=== PATIENT | male | born 1965 | race Hispanic/Latino ===

== ENCOUNTER 2017-11-10 08:14 | Emergency (ER) | payer SELFPAY ==
[2017-11-10] MEDS ORDERED: FAMOTIDINE 20 MG/2 ML VIAL IV ONE (08:50)
[2017-11-10] MEDS ORDERED: DEXAMETHASONE 4 MG/ML VIAL ONE (08:50)
[2017-11-10] MEDS ORDERED: DIPHENHYDRAMINE 50 MG/ML VIAL ONE (08:50)
--- NOTE | 2017-11-10 11:04 | EDPHYS ---
Physician Documentation [facility] Name: Willie Severino Age: 52 yrs Sex: Male : 1965 Arrival Date: 11/10/2017 Time: 08:18 Bed 16 Private MD: ED Physician Graeme Altamirano HPI: 11/10 11:00 This 52 yrs old Male presents to ER via Ambulatory with complaints of Lip pm1 Swelling. 11:00 The patient presents with swelling. The problem is located in the lips. Onset: The pm1 symptoms/episode began/occurred 3 day(s) ago. Duration: The symptoms are continuous. Modifying factors: The symptoms are alleviated by nothing, the symptoms are aggravated by nothing. Associated signs and symptoms: Pertinent negatives: dysphagia, fever, inability to eat, nausea, vomiting, shortness of breath, sore throat, chest pain. Severity of symptoms: in the emergency department the symptoms are actually worse. The patient has not experienced similar symptoms in the past. The patient has been recently seen by a physician: the patient's primary care provider, with different complaint(s), HCTZ was increased for blood pressure management. Patient reports initial swelling to his nose and cheeks that started 3 days ago. Nose and cheek swelling resolved. This AM he had swelling to his lips. No shortness of breath, tongue swelling, drooling, difficulty swallowing, sore throat, chest pain. Historical: - Allergies: 10:21 No Known Allergies; tw2 - Home Meds: 10:21 lisinopril 10 mg Oral tab 1 tab once daily [Active]; hydrochlorothiazide 25 mg Oral tab tw2 1 tab once daily [Active]; amlodipine 10 mg tab 1 tab once daily [Active]; - PMHx: 10:21 Hypertension; tw2 - Immunization history:: Adult Immunizations. - Social history:: Smoking status: Patient/guardian denies using tobacco. - Ebola Screening: : Patient denies travel to an Ebola-affected area in the 21 days before illness onset. ROS: 11:00 Constitutional: Negative for fever, chills, and weight loss, Eyes: Negative for injury, pm1 pain, redness, and discharge. 11:00 Neck: Negative for injury, pain, and swelling, Cardiovascular: Negative for chest pain, palpitations, and edema, Respiratory: Negative for shortness of breath, cough, wheezing, and pleuritic chest pain, Abdomen/GI: Negative for abdominal pain, nausea, vomiting, diarrhea, and constipation, Back: Negative for injury and pain, MS/Extremity: Negative for injury and deformity, Skin: Negative for injury, rash, and discoloration, Neuro: Negative for headache, weakness, numbness, tingling, and seizure. 11:00 ENT: Positive for lip swelling, Negative for ear pain. Exam: 11:00 Constitutional: This is a well developed, well nourished patient who is awake, alert, pm1 and in no acute distress. Head/Face: Normocephalic, atraumatic. Eyes: Pupils equal round and reactive to light, extra-ocular motions intact. Lids and lashes normal. Conjunctiva and sclera are non-icteric and not injected. Cornea within normal limits. Periorbital areas with no swelling, redness, or edema. 11:00 Neck: Trachea midline, no thyromegaly or masses palpated, and no cervical lymphadenopathy. Supple, full range of motion without nuchal rigidity, or vertebral point tenderness. No Meningismus. Chest/axilla: Normal chest wall appearance and motion. Nontender with no deformity. No lesions are appreciated. Cardiovascular: Regular rate and rhythm with a normal S1 and S2. No gallops, murmurs, or rubs. Normal PMI, no JVD. No pulse deficits. Respiratory: Lungs have equal breath sounds bilaterally, clear to auscultation and percussion. No rales, rhonchi or wheezes noted. No increased work of breathing, no retractions or nasal flaring. Abdomen/GI: Soft, non-tender, with normal bowel sounds. No distension or tympany. No guarding or rebound. No evidence of tenderness throughout. Back: No spinal tenderness. No costovertebral tenderness. Full range of motion. Skin: Warm, dry with normal turgor. Normal color with no rashes, no lesions, and no evidence of cellulitis. MS/ Extremity: Pulses equal, no cyanosis. Neurovascular intact. Full, normal range of motion. 11:00 ENT: External ear(s): are unremarkable, Ear canal(s): are normal, TM's: are normal, Nose: is normal, Mouth: Lips: swelling to upper and lower lip, Oral mucosa: normal, pink and intact, moist, Gums: normal with healthy appearance, Tongue: is normal, no swelling, drooling, is not appreciated, no trismus. 11:00 Neuro: Orientation: is normal, Motor: is normal, moves all fours. Vital Signs: 08:36 BP 142 / 82; Pulse 91; Resp 18; Temp 97.8(O); Pulse Ox 99% on R/A; Pain 0/10; tw2 09:38 BP 125 / 67; Pulse 77; Resp 17; Pulse Ox 98% on R/A; tw2 10:19 BP 134 / 71; Pulse 67; Resp 17; Pulse Ox 97% on R/A; tw2 11:17 BP 122 / 77; Pulse 65; Resp 17; Pulse Ox 96% on R/A; tw2 MDM: 08:27 Patient medically screened. pm1 11:00 Data reviewed: vital signs. Data interpreted: Pulse oximetry: on room air is 97 %. pm1 Interpretation: normal. Counseling: I had a detailed discussion with the patient and/or guardian regarding: the historical points, exam findings, and any diagnostic results supporting the discharge/admit diagnosis, the need for outpatient follow up, with PCP for blood pressure management. Explained to the patient to stop his lisinopril and hctz. Patient with recent increase in his HCTZ. HCTZ is unlikely cause but was only medication change. It was increased last week. Likely cause of angioedema is the ACEI. , to return to the emergency department if symptoms worsen or persist or if there are any questions or concerns that arise at home. 11/10 08:40 Order name: IV Saline Lock; Complete Time: 08:48 pm1 Administered Medications: 08:48 Drug: Decadron - Dexamethasone 10 mg Route: IVP; Site: left antecubital; tw2 09:50 Follow up: Response: No adverse reaction tw2 11:32 Follow up: Response: No adverse reaction tw2 08:50 Drug: Pepcid 20 mg Route: IVP; Site: left antecubital; tw2 09:50 Follow up: Response: No adverse reaction tw2 08:52 Drug: Benadryl 25 mg Route: IVP; Site: left antecubital; tw2 09:50 Follow up: Response: No adverse reaction tw2 Disposition: 11/11 06:46 Co-signature as Attending Physician, Graeme Altamirano MD I agree with the assessment and [facility] plan of care. Disposition: 11/10/17 11:03 Discharged to Home. Impression: Angioneurotic edema. - Condition is Stable. - Discharge Instructions: Angioedema. - Prescriptions for Benadryl 25 mg Oral Capsule - take 1 capsule by ORAL route every 6 hours As needed; 30 tablet. Pepcid 20 mg Oral Tablet - take 1 tablet by ORAL route every 12 hours for 10 days; 20 tablet. Prednisone 20 mg Oral Tablet - take 3 tablet by ORAL route once daily for 5 days; 15 tablet. EpiPen 0.3 mg Injection auto- injector - inject 1 pen by INTRAMUSCULAR route as directed As needed Inject into the outer portion of the thigh, through clothing if necessary. Indicated in the emergency treatment of allergic reactions; 2 unit. - Work release form, Medication Reconciliation Form, Thank You Letter form. - Follow up: Emergency Department; When: As needed; Reason: Worsening of condition. Follow up: Private Physician; When: 2 - 3 days; Reason: Recheck today's complaints, Continuance of care, Re-evaluation by your physician. - Problem is new. - Symptoms have improved. Signatures: Graeme Altamirano MD MD cha Marinas, Patrick, FACTORY HELPER FACTORY HELPER pm1 Leeann Nicolas RN RN tw2 Corrections: (The following items were deleted from the chart) 11/10 11:32 11:03 11/10/2017 11:03 Discharged to Home. Impression: Angioneurotic edema. Condition tw2 is Stable. Forms are Medication Reconciliation Form, Thank You Letter, Antibiotic Education, Prescription Opioid Use. Follow up: Emergency Department; When: As needed; Reason: Worsening of condition. Follow up: Private Physician; When: 2 - 3 days; Reason: Recheck today's complaints, Continuance of care, Re-evaluation by your physician. Problem is new. Symptoms have improved. pm1
--- NOTE | 2017-11-10 11:04 | ER ---
Nurse's Notes [facility] Name: Willie Severino Age: 52 yrs Sex: Male : 1965 Arrival Date: 11/10/2017 Time: 08:18 Bed 16 Private MD: Diagnosis: Angioneurotic edema Presentation: 11/10 08:34 Presenting complaint: Patient states: Thursday my nose started swelling and then my tw2 eyes now its my lips and mouth, and i am itching on my arms, back and legs. hx: htn, amlodiping lisinopril hctz. Transition of care: patient was received from another setting of care (hospital). Transition of care: patient was not received from another setting of care. Onset of symptoms was November 10, 2017. Risk Assessment: Do you want to hurt yourself or someone else? Patient reports no desire to harm self or others. Initial Sepsis Screen: Does the patient meet any 2 criteria? No. Patient's initial sepsis screen is negative. Does the patient have a suspected source of infection? No. Patient's initial sepsis screen is negative. Care prior to arrival: None. 08:34 Method Of Arrival: Ambulatory tw2 08:34 Acuity: SANIYA 2 tw2 Historical: - Allergies: 10:21 No Known Allergies; tw2 - Home Meds: 10:21 lisinopril 10 mg Oral tab 1 tab once daily [Active]; hydrochlorothiazide 25 mg Oral tab tw2 1 tab once daily [Active]; amlodipine 10 mg tab 1 tab once daily [Active]; - PMHx: 10:21 Hypertension; tw2 - Immunization history:: Adult Immunizations. - Social history:: Smoking status: Patient/guardian denies using tobacco. - Ebola Screening: : Patient denies travel to an Ebola-affected area in the 21 days before illness onset. Screenin:24 Abuse screen: Denies threats or abuse. Nutritional screening: No deficits noted. tw2 Tuberculosis screening: No symptoms or risk factors identified. Fall Risk None identified. Assessment: 08:34 General: Appears in no apparent distress. obese, Behavior is calm, cooperative, tw2 appropriate for age. Pain: Denies pain. Neuro: Level of Consciousness is awake, alert, obeys commands, Oriented to person, place, time, situation. Cardiovascular: Denies chest pain, shortness of breath, Heart tones S1 S2 Capillary refill < 3 seconds Patient's skin is warm and dry. Respiratory: Airway is patent Respiratory effort is even, unlabored, Respiratory pattern is regular, symmetrical, Breath sounds are clear bilaterally. GI: No signs and/or symptoms were reported involving the gastrointestinal system. Abdomen is round non-distended, obese, Bowel sounds present X 4 quads. : No signs and/or symptoms were reported regarding the genitourinary system. EENT: swelling noted to mouth, eyes, and nose. Musculoskeletal: Circulation, motion, and sensation intact. Range of motion: intact in all extremities. 08:36 Reassessment: LUNA Pierson at bedside at this time. tw2 09:38 Reassessment: Patient appears in no apparent distress at this time. No changes from tw2 previously documented assessment. Patient and/or family updated on plan of care and expected duration. Pain level reassessed. Patient is alert, oriented x 3, equal unlabored respirations, skin warm/dry/pink. 10:19 Reassessment: Patient appears in no apparent distress at this time. No changes from tw2 previously documented assessment. Patient and/or family updated on plan of care and expected duration. Pain level reassessed. Patient is alert, oriented x 3, equal unlabored respirations, skin warm/dry/pink. 11:20 Reassessment: Patient appears in no apparent distress at this time. No changes from tw2 previously documented assessment. Patient and/or family updated on plan of care and expected duration. Pain level reassessed. Patient is alert, oriented x 3, equal unlabored respirations, skin warm/dry/pink. 11:31 Reassessment: Patient appears in no apparent distress at this time. No changes from tw2 previously documented assessment. Patient and/or family updated on plan of care and expected duration. Pain level reassessed. Patient is alert, oriented x 3, equal unlabored respirations, skin warm/dry/pink. Vital Signs: 08:36 BP 142 / 82; Pulse 91; Resp 18; Temp 97.8(O); Pulse Ox 99% on R/A; Pain 0/10; tw2 09:38 BP 125 / 67; Pulse 77; Resp 17; Pulse Ox 98% on R/A; tw2 10:19 BP 134 / 71; Pulse 67; Resp 17; Pulse Ox 97% on R/A; tw2 11:17 BP 122 / 77; Pulse 65; Resp 17; Pulse Ox 96% on R/A; tw2 ED Course: 08:18 Patient arrived in ED. rg4 08:27 Jason Carranza NP is PHCP. pm1 08:27 Graeme Altamirano MD is Attending Physician. pm1 08:34 Leeann Nicolas RN is Primary Nurse. tw2 08:34 Arm band placed on. tw2 08:35 Triage completed. tw2 08:48 Initial lab(s) drawn, by me, held in ED. Inserted saline lock: 20 gauge in left 5 antecubital area, using aseptic technique. Blood collected. 08:49 Patient has correct armband on for positive identification. Bed in low position. Call 5 light in reach. Adult w/ patient. Pulse ox on. NIBP on. 11:31 No provider procedures requiring assistance completed. IV discontinued, intact, tw2 bleeding controlled, No redness/swelling at site. Pressure dressing applied. Administered Medications: 08:48 Drug: Decadron - Dexamethasone 10 mg Route: IVP; Site: left antecubital; tw2 09:50 Follow up: Response: No adverse reaction tw2 11:32 Follow up: Response: No adverse reaction tw2 08:50 Drug: Pepcid 20 mg Route: IVP; Site: left antecubital; tw2 09:50 Follow up: Response: No adverse reaction tw2 08:52 Drug: Benadryl 25 mg Route: IVP; Site: left antecubital; tw2 09:50 Follow up: Response: No adverse reaction tw2 Outcome: 11:03 Discharge ordered by . pm1 11:31 Discharged to home ambulatory, with significant other. tw2 11:31 Condition: stable 11:31 Discharge instructions given to patient, significant other, Instructed on discharge instructions, follow up and referral plans. medication usage, Demonstrated understanding of instructions, follow-up care, medications, Prescriptions given X 4. 11:32 Patient left the ED. tw2 Signatures: Jason Carranza NP ACUTE CARE REGISTERED NURSE pm1 Leeann Nicolas RN RN tw2 Marla Marinelli rg4 Alesha Murillo [facility] Corrections: (The following items were deleted from the chart) 09:39 09:38 BP 125 / 67; Pulse 77bpm; Resp 17bpm; Pulse Ox 95% RA; 11:30 11:17 BP 141 / 90; Pulse 65bpm; Resp 17bpm; Pulse Ox 96% RA;
== END 2017-11-10 11:32 | disposition home or self-care (01) ==
LOC: ER 08:14
DX: T78.3XXA Angioneurotic edema, initial encounter (principal); I10 Essential (primary) hypertension
CPT/HCPCS: 96374; 96375; 99284